=== PATIENT | male | born 1945 | race Two or more races ===

== ENCOUNTER 2025-05-12 16:31 | Emergency (ER) | payer OTHER ==
[~2025-05-12] VITALS: Ht 182.9 cm; Wt 90.9 kg
[2025-05-12 17:10] LABS: Hematocrit 22.8 % (41.0-53.0); Hemoglobin 7.7 g/dL (13.5-17.5)
[2025-05-12 17:11] LABS: Mean Corpuscular Hemoglobin 31.7 pg (28.0-32.0); Mean Corpuscular Volume 94.0 fL (80.0-100.0)
[2025-05-12 17:23] LABS: Alanine Aminotransferase 14 U/L (7-40); Albumin 3.8 g/dL (3.2-4.8); Alkaline Phosphatase 84 U/L (46-116); Anion Gap 8 (5-15); BUN/Creatinine Ratio 18.9 (10.0-20.0); Calcium 9.4 mg/dL (8.7-10.4); Carbon Dioxide 21 mmol/L (20-31); Glucose 98 mg/dL (74-106); Potassium 5.0 mmol/L (3.5-5.1); Sodium 144 mmol/L (136-145)
[2025-05-12 17:25] LABS: Bilirubin, Total 2.1 mg/dL (0.2-1.0); Blood Urea Nitrogen 63 mg/dL (9-23); Chloride 115 mmol/L (98-107); Lipase 81 U/L (12-53); Total Protein 5.4 g/dL (5.7-8.2)
[2025-05-12 17:40] VITALS: PULSE 78; RESP 16; O2SAT 93
--- NOTE | 2025-05-12 17:49 | ED.PDOC ---
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 EMS reports, patient is coming from home where family called d/t patient being overly weak and pale x4days. Per EMS, family relays patient received a blood transfusion x4days ago at [facility] prior to commencement of symptoms. Patient denies hematemesis, melena, fever, body-aches, or diarrhea. No other symptoms or modifying factors present at this time. Vital signs were stable. Chief Complaint: General Weakness Time Seen by MD: 17:35 Reviewed Notes: Nurses Notes, Medications, Allergies Allergies: Coded Allergies: NSAIDs (Verified Allergy, Unknown, 05/12/25) Information Source: Patient, Relative Mode of Arrival: Ambulatory Severity: Moderate Timing: Days Duration: Since onset Prehospital treatment: None Past Medical History PAST MEDICAL HISTORY: Anemia, ESRD Surgical History: Denies all surgeries Family History Family History: Unknown Social History Smoker: Non-Smoker Alcohol: Denies ETOH Use Drugs: Denies Drug Use Lives In: Home Constitutional: reports: weakness; denies: chills, diaphoresis, fatigue, fever, malaise, sweats, others EENTM: denies: blurred vision, double vision, ear bleeding, ear discharge, ear drainage, ear pain, ear ringing, eye pain, eye redness, hearing loss, mouth pain, mouth swelling, nasal discharge, nose bleeding, nose congestion, nose pain, photophobia, tearing, throat pain, throat swelling, voice changes, others Respiratory: denies: cough, hemoptysis, orthopnea, SOB at rest, shortness of breath, SOB with excertion, stridor, wheezing, others Cardiovascular: denies: chest pain, dizzy spells, diaphoresis, Dyspnea on exertion, edema, irregular heart beat, left arm pain, lightheadedness, palpitations, PND, syncope, others Gastrointestinal: denies: abdomen distended, abdominal pain, blood streaked bowels, constipated, diarrhea, dysphagia, difficulty swallowing, hematemesis, melena, nausea, poor appetite, poor fluid intake, rectal bleeding, rectal pain, vomiting, others Genitourinary: denies: burning, dysuria, flank pain, frequency, hematuria, incontinence, penile discharge, penile sore, pain, testicle pain, testicle swelling, urgency, others Neurological: denies: dizziness, fainting, headache, left sided numbness, left sided weakness, numbness, paresthesia, pre-existing deficit, right sided numbness, right sided weakness, seizure, speech problems, tingling, tremors, weakness, others Musculoskeletal: denies: back pain, gout, joint pain, joint swelling, muscle pain, muscle stiffness, neck pain, others Integumetry: denies: bruises, change in color, change in hair/nails, dryness, laceration, lesions, lumps, rash, wounds, others Allergic/Immunocompromised: denies: Difficulty Healing, Frequent Infections, Hives, Itching, others Hematologic/Lymphatic: denies: anemia, blood clots, easy bleeding, easy bruising, swollen glands, others Endocrine: denies: excessive hunger, excessive sweating, excessive thirst, excessive urination, flushing, intolerance to cold, intolerance to heat, unexplained weight gain, unexplained weight loss, others Psychiatric: denies: anxiety, bipolar disorder, depression, hopeless, panic disorder, schizophrenia, sleepless, suicidal, others All Other Systems: Reviewed and Negative Physical Exam General Appearance: Mild Distress (Patient was in very mild distress at time of evaluation. Patient was pleasant and did look toxic.), Normal HEENT: Normal ENT Inspection, Pharynx Normal, TMs Normal Neck: Full Range of Motion, Non-Tender, Normal, Normal Inspection Respiratory: Chest Non-Tender, Lungs Clear, No Accessory Muscle Use, No Respiratory Distress, Normal Breath Sounds Cardiovascular: No Edema, No JVD, No Murmur, No Gallop, Normal Peripheral Pulses, Regular Rate/Rhythm Breast Exam: Deferred Gastrointestinal: No Organomegaly, Non Tender, No Pulsatile Mass, Normal Bowel Sounds, Soft Genitalia: Deferred Pelvic: Deferred Rectal: Deferred Extremities: Normal capillary refill, Pedal edema Neurologic: Alert Cerebellar Function: NOT DONE Reflexes: NOT DONE Skin: Dry, Normal Color, Warm Lymphatic: No Adenopathy Was a procedure done? Was a procedure done?: No Differential Dx Considerations may include: Anemia of chronic disease, sepsis, electrolyte abnormality, acute coronary syndrome X-Ray, Labs, Meds, VS Vital Signs Date Time Temp Pulse Resp B/P (MAP) Pulse Ox O2 Delivery O2 Flow Rate FiO2 05/12/25 20:00 81 05/12/25 19:30 79 18 123/56 (78) 96 05/12/25 19:30 79 18 96 Room Air* 0 21 05/12/25 18:00 77 19 118/54 (75) 96 05/12/25 17:40 81 05/12/25 17:40 78 16 93 Room Air* 0 21 05/12/25 17:40 97.8 78 16 128/59 (82) 93 97.8 05/12/25 17:03 98.3 72 16 114/55 98 98.3 05/12/25 16:45 71 Lab Test 05/12/25 20:19 05/12/25 20:02 05/12/25 18:25 05/12/25 17:06 Range/Units Urine Color Light-yellow Yellow Urine Clarity Clear Clear Urine pH 5.5 5.0-9.0 Urine Specific [place] 1.015 1.001-1.035 Urine Protein Trace H Negative Urine Ketones Negative Negative Urine Blood Negative Negative /uL Urine Nitrite Negative Negative Urine Bilirubin Negative Negative Urine Urobilinogen Normal Negative mg/dL Urine Leukocyte Esterase Negative Negative /uL Urine RBC <1 0 - 3 /hpf Urine Microscopic WBC 1 0-3 /HPF Urine Squamous Epithelial Cells Few <5 /hpf Urine Bacteria None seen None Seen /hpf Urine Glucose Normal Normal mg/dL Troponin I High Sensitivity 51 52 </=54 ng/L POC Glucose 91 70-106 mg/dl Test 05/12/25 17:00 Range/Units White Blood Count 5.9 4.4-10.8 10^3/uL Red Blood Count 2.42 L 4.5-5.90 10^6/uL Hemoglobin 7.7 L 13.5-17.5 g/dL Hematocrit 22.8 L 41.0-53.0 % Mean Corpuscular Volume 94.0 80.0-100.0 fL Mean Corpuscular Hemoglobin 31.7 28.0-32.0 pg Mean Corpuscular Hemoglobin Concent 33.7 32.0-36.0 g/dL Red Cell Distribution Width 19.8 H 11.8-14.3 % Platelet Count 129 L 140-450 10^3/uL Mean Platelet Volume 7.2 6.9-10.8 fL Neutrophils (%) (Auto) 37.0-80.0 % Lymphocytes (%) (Auto) 10.0-50.0 % Monocytes (%) (Auto) 0.0-12.0 % Basophils (%) (Auto) 0.0-2.0 % Neutrophils # (Auto) 1.6-8.6 10 ^3/uL Lymphocytes # (Auto) 0.4-5.4 10 ^3/uL Monocytes # (Auto) 0-1.3 10 ^3/uL Differential Total Cells Counted 100.0 100 Neutrophils % (Manual) 27 L 37.0-80.0 Band Neutrophils % (Manual) 0 Lymphocytes % (Manual) 63 H 10.0-50.0 Monocytes % (Manual) 7 0-12 Eosinophils % (Manual) 3 0-7 Basophils % (Manual) 0 0.0-2.0 Metamyelocytes % (manual) 0 Myelocytes % (Manual) 0 Promyelocytes % (Manual) 0 Blast Cells % (Manual) 0 Reactive Lymphocytes 0 Platelet Estimate Decreased Anisocytosis (manual) Slight Sodium Level 144 136-145 mmol/L Potassium Level 5.0 3.5-5.1 mmol/L Chloride Level 115 H 98-107 mmol/L Carbon Dioxide Level 21 20-31 mmol/L Anion Gap 8 5-15 Blood Urea Nitrogen 63 H 9-23 mg/dL Creatinine 3.33 H 0.700-1.30 mg/dL Glomerular Filtration Rate Calc 18 >90 mL/min BUN/Creatinine Ratio 18.9 10.0-20.0 Serum Glucose 98 74-106 mg/dL Calcium Level 9.4 8.7-10.4 mg/dL Total Bilirubin 2.1 H 0.2-1.0 mg/dL Aspartate Amino Transferase (AST) 23 13-40 U/L Alanine Aminotransferase (ALT) 14 7-40 U/L Alkaline Phosphatase 84 46-116 U/L Troponin I High Sensitivity 58 *H </=54 ng/L Total Protein 5.4 L 5.7-8.2 g/dL Albumin 3.8 3.2-4.8 g/dL Lipase 81 H 12-53 U/L X-Ray, Labs, Meds, VS Comment All studies performed the ED were evaluated by me personally. Laboratories revealed a significant anemic state as well as confirmation of the chronic renal concerns as well as a mildly elevated troponin. EKG revealed a sinus rhythm with a rate of 71. Low voltage on extremity leads as well as nonspecific T-wave abnormalities. NV interval 171 and QT interval of 407. Spoke with Dr. Dee at [facility] and advised him of initial presentation as well as laboratory and EKG findings. He advised that all the numbers presented were indicative of the patient's baseline. We both agreed that the patient should receive 2 units of PRBCs and sent home for continued home management. Advised patient and of the conversation between [facility] and myself. They were in agreement with the strategy for the day. Patient should follow up with his [facility] providers next week. Time of 1ST Reevaluation: 21:32 Reevaluation 1ST: Improved Consultation: PCP Patient Education/Counseling: Diagnosis, Treatment Family Education/Counseling: Diagnosis, Treatment, No Family Present SEPSIS Sepsis Screen Recent Procedure: No On Antibiotic Therapy: No Respiratory Rate >20: No Heart Rate >90: No Temp<36 C (96.8 F) or >38.3 C: No SBP <90 or MAP <65 mmHG: No New Acute Mental Status Change: No Is the patient on CPAP, BIPAP,: No Physician Orders Heplock Iv (05/12/25 ) Continuous Ekg Monitoring 08,12,16,20,00,04 (05/12/25 16:42) Obtain Consent For: (05/12/25 19:23) Packedcell-Noactive Bleeding (05/12/25 19:23) Type And Screen (05/12/25 19:23) Obtain Consent For Anesthesia (05/12/25 19:23) Vital Signs Date Time Temp Pulse Resp B/P (MAP) Pulse Ox O2 Delivery O2 Flow Rate FiO2 05/12/25 20:00 81 05/12/25 19:30 79 18 123/56 (78) 96 05/12/25 19:30 79 18 96 Room Air* 0 21 05/12/25 18:00 77 19 118/54 (75) 96 05/12/25 17:40 81 05/12/25 17:40 78 16 93 Room Air* 0 21 05/12/25 17:40 97.8 78 16 128/59 (82) 93 97.8 05/12/25 17:03 98.3 72 16 114/55 98 98.3 05/12/25 16:45 71 Laboratory Tests Test 05/12/25 17:00 White Blood Count 5.9 10^3/uL (4.4-10.8) Departure 1 Departure Time of Disposition: 21:33 Impression: Primary Impression: Anemia Additional Impressions: End stage renal disease Elevated troponin I level Disposition: HOME / SELF CARE / HOMELESS Condition: Stable Additional Instructions: Advised patient follow up next week with his primary care provider for continued management of his multiple comorbidities. Discharged With: Self, Spouse Critical Care Note Critical Care Time?: No Stability Stability form required: No Heart Score Heart Score: Heart Score Response (Comments) Value History Slightly Suspicious 0 EKG Repolarization Disturb 1 Age >65 2 Risk Factors 1 or 2 risk factors 1 Troponin 1-2 x's Normal limit 1 Total 5 I personally scribed for MARIPOSA DANIEL PAC ([email or web address]) on 05/12/25 at 17:49. Electronically submitted by Macrina Carpenter [email or web address]). MARIPOSA DANIEL PAC May 12, 2025 17:49
--- NOTE | 2025-05-12 18:30 | ECG ---
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
[2025-05-12 18:54] LABS: Total Cells Counted 100.0 (100)
[2025-05-12 18:55] LABS: Anisocytosis Slight
[2025-05-12 19:30] VITALS: PULSE 79; RESP 18; O2SAT 96
[2025-05-12 21:07] LABS: Urine Protein, UAD TRACE (Negative)
[2025-05-12 21:43] VITALS: BP 103/44; PULSE 82; RESP 15; TEMP 99.1
[2025-05-12 22:07] VITALS: BP 123/54; PULSE 83; RESP 19; TEMP 98.9
[2025-05-12] MEDS: ACETAMINOPHEN 325 MG TAB PO ONE (22:29)
[2025-05-12 23:34] VITALS: BP 114/49; PULSE 72; RESP 14; TEMP 97.9
[2025-05-13 00:03] VITALS: BP 121/61; PULSE 70; RESP 16; TEMP 98.1
[2025-05-13 00:31] VITALS: BP 118/55; PULSE 74; RESP 19; TEMP 97.7
[2025-05-13 02:00] VITALS: O2SAT 95
[2025-05-13 02:05] VITALS: BP 114/62; PULSE 74; RESP 19; TEMP 97.7
== END 2025-05-13 02:17 | disposition home or self-care (01) ==
LOC: EDBD 16:31 → ER 16:31
DX: N18.6 End stage renal disease (principal); D63.1 Anemia in chronic kidney disease; Z88.6 Allergy status to analgesic agent; R79.89 Other specified abnormal findings of blood chemistry
CPT/HCPCS: 36415; 36430; 80053; 81001; 82947; 83690; 84484; 85007; 85027; 86850; 86900; 86901; 86920; 93005; 99285; P9016; 82962

== ENCOUNTER 2025-05-22 11:29 | Inpatient (IN) | payer OTHER ==
[~2025-05-22] VITALS: Ht 180.3 cm; Wt 90.3 kg
[2025-05-22] MEDS: MELATONIN 5 MG TAB PO ONE (01:00)
--- NOTE | 2025-05-22 12:49 | ED.PDOC ---
History of Present Illness HPI Comments 79 y.o male with multiple comorbidities, including liver cirrhosis, splenomegaly, CKD, DM, HLD, and chronic anemia, presents to the ED due to increased generalized weakness and pallor, associated with a Hgb of 7.5 noted on routine lab draw done yesterday. Patient is ambulatory with his walker and is accompanied by spouse. The patient and his deny any signs of active bleeding, and recent workup, including endoscopy and colonoscopy, has reportedly ruled out gastrointestinal bleeding and ulcers. Patient reports having 8 total blood transfusions in the past due to ongoing low anemia without identified source/deficiency. Patient denies any chest pain, SOB, fever, chills, recent illness exposure. Chief Complaint: Abnormal LAB's Time Seen by MD: 12:19 Reviewed Notes: Nurses Notes, Medications, Allergies Allergies: Coded Allergies: NSAIDs (Verified Allergy, Unknown, 05/12/25) Information Source: Spouse Mode of Arrival: walker Severity: Moderate Timing: Came on: Gradually Duration: Since onset Past Medical History PAST MEDICAL HISTORY: Anemia, ESRD, High Lipids, HTN, Liver Surgical History: Denies all surgeries Family History Family History: Unknown Social History Smoker: Non-Smoker Alcohol: Denies ETOH Use Drugs: Denies Drug Use Lives In: Home Constitutional: reports: weakness; denies: chills, diaphoresis, fatigue, fever, malaise, sweats, others EENTM: denies: blurred vision, double vision, ear bleeding, ear discharge, ear drainage, ear pain, ear ringing, eye pain, eye redness, hearing loss, mouth pain, mouth swelling, nasal discharge, nose bleeding, nose congestion, nose pain, photophobia, tearing, throat pain, throat swelling, voice changes, others Respiratory: denies: cough, hemoptysis, orthopnea, SOB at rest, shortness of breath, SOB with excertion, stridor, wheezing, others Cardiovascular: denies: chest pain, dizzy spells, diaphoresis, Dyspnea on exertion, edema, irregular heart beat, left arm pain, lightheadedness, palpitations, PND, syncope, others Gastrointestinal: denies: abdomen distended, abdominal pain, blood streaked bowels, constipated, diarrhea, dysphagia, difficulty swallowing, hematemesis, melena, nausea, poor appetite, poor fluid intake, rectal bleeding, rectal pain, vomiting, others Genitourinary: denies: burning, dysuria, flank pain, frequency, hematuria, incontinence, penile discharge, penile sore, pain, testicle pain, testicle swelling, urgency, others Neurological: denies: dizziness, fainting, headache, left sided numbness, left sided weakness, numbness, paresthesia, pre-existing deficit, right sided numbness, right sided weakness, seizure, speech problems, tingling, tremors, weakness, others Musculoskeletal: denies: back pain, gout, joint pain, joint swelling, muscle pain, muscle stiffness, neck pain, others Integumetry: reports: change in color (pale ); denies: bruises, change in hair/nails, dryness, laceration, lesions, lumps, rash, wounds, others Allergic/Immunocompromised: denies: Difficulty Healing, Frequent Infections, Hives, Itching, others Hematologic/Lymphatic: reports: anemia; denies: blood clots, easy bleeding, easy bruising, swollen glands, others Endocrine: denies: excessive hunger, excessive sweating, excessive thirst, excessive urination, flushing, intolerance to cold, intolerance to heat, unexplained weight gain, unexplained weight loss, others Psychiatric: denies: anxiety, bipolar disorder, depression, hopeless, panic disorder, schizophrenia, sleepless, suicidal, others All Other Systems: Reviewed and Negative Physical Exam General Appearance: Moderate Distress HEENT: Normal ENT Inspection, Pharynx Normal, TMs Normal Neck: Full Range of Motion, Non-Tender, Normal, Normal Inspection Respiratory: Chest Non-Tender, Lungs Clear, No Accessory Muscle Use, No Respiratory Distress, Normal Breath Sounds Cardiovascular: No Edema, No JVD, No Murmur, No Gallop, Normal Peripheral Pulses, Regular Rate/Rhythm Breast Exam: Deferred Gastrointestinal: Distended, Soft Genitalia: Deferred Pelvic: Deferred Rectal: Deferred Extremities: No calf tenderness, Normal capillary refill, Normal inspection, Normal range of motion, Non-tender, No pedal edema Musculoskeletal : Apperance: Normal Neurologic: Alert, warehouse trainer II-XII nml as Tested, No Motor Deficits, Normal Affect, Normal Mood, No Sensory Deficits Cerebellar Function: Normal Reflexes: Normal Skin: Pallor Peripheral Pulses: 3+ Radial (R), 3+ Radial (L) Lymphatic: No Adenopathy Was a procedure done? Was a procedure done?: No Differential Dx Considerations may include: Inadequate RBC Production, Iron Deficiency Anemia, Renal Disease, Vitamin Deficiencies B12 deficiency, Autoimmune Hemolytic Anemia, Bone Marrow Suppression X-Ray, Labs, Meds, VS Vital Signs Date Time Temp Pulse Resp B/P (MAP) Pulse Ox O2 Delivery O2 Flow Rate FiO2 05/22/25 15:00 98.3 62 19 104/51 (68) 96 98.3 05/22/25 14:15 97.9 67 12 90/42 (58) 96 97.9 05/22/25 14:15 Room Air* 0 21 05/22/25 11:31 97.8 73 15 108/78 96 97.8 Lab Test 05/22/25 15:13 05/22/25 12:54 Range/Units POC Glucose 128 H 70-106 mg/dl White Blood Count 3.6 L 4.4-10.8 10^3/uL Red Blood Count 2.68 L 4.5-5.90 10^6/uL Hemoglobin 8.3 L 13.5-17.5 g/dL Hematocrit 24.2 L 41.0-53.0 % Mean Corpuscular Volume 90.1 80.0-100.0 fL Mean Corpuscular Hemoglobin 31.0 28.0-32.0 pg Mean Corpuscular Hemoglobin Concent 34.4 32.0-36.0 g/dL Red Cell Distribution Width 18.8 H 11.8-14.3 % Platelet Count 118 L 140-450 10^3/uL Mean Platelet Volume 7.2 6.9-10.8 fL Neutrophils (%) (Auto) 37.0-80.0 % Lymphocytes (%) (Auto) 10.0-50.0 % Monocytes (%) (Auto) 0.0-12.0 % Basophils (%) (Auto) 0.0-2.0 % Neutrophils # (Auto) 1.6-8.6 10 ^3/uL Lymphocytes # (Auto) 0.4-5.4 10 ^3/uL Monocytes # (Auto) 0-1.3 10 ^3/uL Differential Total Cells Counted 100.0 100 Neutrophils % (Manual) 24 L 37.0-80.0 Band Neutrophils % (Manual) 3 Lymphocytes % (Manual) 67 H 10.0-50.0 Monocytes % (Manual) 4 0-12 Eosinophils % (Manual) 2 0-7 Basophils % (Manual) 0 0.0-2.0 Metamyelocytes % (manual) 0 Myelocytes % (Manual) 0 Promyelocytes % (Manual) 0 Blast Cells % (Manual) 0 Reactive Lymphocytes 0 Platelet Estimate Decreased Anisocytosis (manual) Slight [place] Cells Few Sodium Level 143 136-145 mmol/L Potassium Level 5.6 *H 3.5-5.1 mmol/L Chloride Level 114 H 98-107 mmol/L Carbon Dioxide Level 18 L 20-31 mmol/L Anion Gap 11 5-15 Blood Urea Nitrogen 82 *H 9-23 mg/dL Creatinine 3.26 H 0.700-1.30 mg/dL Glomerular Filtration Rate Calc 18 >90 mL/min BUN/Creatinine Ratio 25.2 H 10.0-20.0 Serum Glucose 131 H 74-106 mg/dL Calcium Level 9.5 8.7-10.4 mg/dL Troponin I High Sensitivity 6 </=54 ng/L Current Medications Medications (Trade) Dose Ordered Sig/Rebekah Route Start Time Stop Time Status Last Admin Insulin Human Regular (InsuLIN R) 10 units ONCE ONCE IV 05/22/25 14:30 05/22/25 14:31 DC 05/22/25 15:37 Dextrose 50 ml ONCE ONCE IV 05/22/25 14:30 05/22/25 14:31 DC 05/22/25 15:07 Sodium Bicarbonate 50 ml ONCE ONCE IV 05/22/25 14:30 05/22/25 14:31 DC 05/22/25 15:20 Calcium Gluconate/ Sodium Chloride 50 ml @ 120 mls/hr ONCE ONCE IV 05/22/25 14:30 05/22/25 14:54 DC 05/22/25 14:58 Zirconium Oxide (Lokelma) 10 gm ONCE ONCE PO 05/22/25 14:30 05/22/25 14:31 DC 05/22/25 15:15 Patient alert. He is pale. Reviewed his previous labs which showed hemoglobin around 7.5. Vitals stable. Hepatosplenomegaly. Potassium elevated. Hyperkalemia treatment. Kidney function elevated. Explained to the patient. [place] approved inpatient admission [id number]. Time of 1ST Reevaluation: 12:38 Reevaluation 1ST: Unchanged Patient Education/Counseling: Diagnosis, Treatment, Prognosis Family Education/Counseling: Diagnosis, Treatment, Prognosis SEPSIS Sepsis Screen Date sepsis recognized/suspect: May 22, 2025 Time Sepsis recognized/suspect: 1133 Recent Procedure: No On Antibiotic Therapy: No Respiratory Rate >20: No Heart Rate >90: No Temp<36 C (96.8 F) or >38.3 C: No SBP <90 or MAP <65 mmHG: No New Acute Mental Status Change: No Is the patient on CPAP, BIPAP,: No Physician Orders Potassium (05/22/25 18:16) Vital Signs Date Time Temp Pulse Resp B/P (MAP) Pulse Ox O2 Delivery O2 Flow Rate FiO2 05/22/25 15:00 98.3 62 19 104/51 (68) 96 98.3 05/22/25 14:15 97.9 67 12 90/42 (58) 96 97.9 05/22/25 14:15 Room Air* 0 21 05/22/25 11:31 97.8 73 15 108/78 96 97.8 Laboratory Tests Test 05/22/25 12:54 White Blood Count 3.6 10^3/uL (4.4-10.8) L Medications Medications Dose Ordered Sig/Rebekah Route Start Time Stop Time Status Last Admin Dose Admin Calcium Gluconate/ Sodium Chloride 50 ml @ 120 mls/hr ONCE ONCE IV 05/22/25 14:30 05/22/25 14:54 DC 05/22/25 14:58 Dextrose 50 ml ONCE ONCE IV 05/22/25 14:30 05/22/25 14:31 DC 05/22/25 15:07 Insulin Human Regular 10 units ONCE ONCE IV 05/22/25 14:30 05/22/25 14:31 DC 05/22/25 15:37 Sodium Bicarbonate 50 ml ONCE ONCE IV 05/22/25 14:30 05/22/25 14:31 DC 05/22/25 15:20 Zirconium Oxide 10 gm ONCE ONCE PO 05/22/25 14:30 05/22/25 14:31 DC 05/22/25 15:15 Departure 1 Departure Time of Disposition: 16:59 Impression: Primary Impression: Hyperkalemia Additional Impression: End stage renal disease Disposition: 09 ADMITTED INPATIENT Admit to: Med Surg Condition: Guarded Critical Care Note Critical Care Time?: Yes (90 min-critical care time only) Stability Stability form required: No I personally scribed for PERI FLANAGAN MD ([email or web address]) on 05/22/25 at 12:49. Electronically submitted by Denise Carballo ([facility]). PERI FLANAGAN MD May 22, 2025 12:49
[2025-05-22 13:11] LABS: Hematocrit 24.2 % (41.0-53.0); Hemoglobin 8.3 g/dL (13.5-17.5); Mean Corpuscular Hemoglobin 31.0 pg (28.0-32.0); Mean Corpuscular Volume 90.1 fL (80.0-100.0)
[2025-05-22 13:15] LABS: Sodium 143 mmol/L (136-145)
[2025-05-22 13:16] LABS: Anion Gap 11 (5-15); Calcium 9.5 mg/dL (8.7-10.4)
[2025-05-22 13:21] LABS: BUN/Creatinine Ratio 25.2 (10.0-20.0)
[2025-05-22 14:03] LABS: Carbon Dioxide 18 mmol/L (20-31); Chloride 114 mmol/L (98-107); Glucose 131 mg/dL (74-106)
[2025-05-22 14:06] LABS: Potassium 5.6 mmol/L (3.5-5.1)
[2025-05-22 14:07] LABS: Blood Urea Nitrogen 82 mg/dL (9-23)
[2025-05-22] MEDS: CALCIUM GLUC 1,000mg/50ml-NS 50 ML IV ONE (14:58)
[2025-05-22 15:01] LABS: Anisocytosis Slight; Total Cells Counted 100.0 (100)
[2025-05-22] MEDS: DEXTROSE (50%) 50ML SYRG IV ONE (15:07)
[2025-05-22] MEDS: SODIUM ZIRCONIUM CYCL 10 GM PAK PO ONE (15:15)
[2025-05-22] MEDS: SODIUM BICARB 8.4% 50Meq/50ml SYR INJ IV ONE (15:20)
[2025-05-22] MEDS: InsuLIN REG 1unit/0.01ml Soln (100units/ml) IV ONE (15:37)
[2025-05-22] MEDS ORDERED: ONDANSETRON HCL 4 MG/2 ML VIAL IV PRN ×2 (19:00)
[2025-05-22] MEDS ORDERED: ACETAMINOPHEN 325 MG TAB PO PRN (19:00)
--- NOTE | 2025-05-22 22:04 | DVHHP2 ---
History of Present Illness Reason for Visit: Generalized weakness History of Present Illness 79-year-old male presents for evaluation of generalized weakness. Patient reports a history of chronic kidney disease, diabetes mellitus and liver disease. He reports generalized weakness for the past three days. He reports having recent GI workup including endoscopy and colonoscopy to rule out GI bleed and ulcers. He states results were negative. He reports having blood transfusions for chronic anemia in the past.. Reports occasional shortness for breath. No fever or chills. No other acute complaints. Past Medical History Liver disease, end-stage renal disease, hypertension, anemia Past Surgical History Denies Family History Noncontributory Smoke: No ALCOHOL: none Drugs: None Lives: with Family Review of Systems Review of Systems Review of systems are currently negative otherwise addressed in HPI. Allergies: Coded Allergies: NSAIDs (Verified Allergy, Unknown, 05/12/25) Medications Current Medications Medications Dose Ordered Sig/Rebkeah Route Start Time Stop Time Status Last Admin Dose Admin Amlodipine Besylate 5 mg DAILY PO 05/23/25 10:00 Tamsulosin HCl 0.4 mg QPM PO 05/23/25 18:00 Allopurinol 100 mg DAILY PO 05/23/25 10:00 Pantoprazole Sodium 40 mg DAILY@0600 PO 05/23/25 06:00 Ondansetron HCl 4 mg Q4HP PRN IV 05/22/25 19:00 Acetaminophen 650 mg Q6HP PRN PO 05/22/25 19:00 Exam Vital Signs Vital Signs Date Time Temp Pulse Resp B/P (MAP) Pulse Ox O2 Delivery O2 Flow Rate FiO2 05/22/25 20:00 98.3 69 13 123/51 (75) 99 98.3 05/22/25 14:15 Room Air* 0 21 Exam Gen: 79-year-old male in mild distress. Skin: Warm, dry, normal color and texture, no rash. HEENT: Normocephalic atraumatic, mucous membranes moist and pink. Neck: Cervical and supraclavicular nodes normal without enlargement, trachea is midline, thyroid gland is normal without masses. Pulmonary: Clear to auscultation and percussion bilaterally. Cardiac: Regular rate and rhythm. No murmur Abdomen: Soft, nontender, nondistended, bowel sounds present all 4 quadrants, no guarding, no rigidity, no organomegaly. Extremities: No cyanosis, clubbing, no edema Neuro: Cranial nerves II through XII grossly intact, normal affect and speech, no focal motor deficits. Labs/Xrays Labs Test 05/22/25 18:04 05/22/25 15:13 05/22/25 12:54 Range/Units Potassium Level 4.9 3.5-5.1 mmol/L POC Glucose 128 H 70-106 mg/dl White Blood Count 3.6 L 4.4-10.8 10^3/uL Red Blood Count 2.68 L 4.5-5.90 10^6/uL Hemoglobin 8.3 L 13.5-17.5 g/dL Hematocrit 24.2 L 41.0-53.0 % Mean Corpuscular Volume 90.1 80.0-100.0 fL Mean Corpuscular Hemoglobin 31.0 28.0-32.0 pg Mean Corpuscular Hemoglobin Concent 34.4 32.0-36.0 g/dL Red Cell Distribution Width 18.8 H 11.8-14.3 % Platelet Count 118 L 140-450 10^3/uL Mean Platelet Volume 7.2 6.9-10.8 fL Neutrophils (%) (Auto) 37.0-80.0 % Lymphocytes (%) (Auto) 10.0-50.0 % Monocytes (%) (Auto) 0.0-12.0 % Basophils (%) (Auto) 0.0-2.0 % Neutrophils # (Auto) 1.6-8.6 10 ^3/uL Lymphocytes # (Auto) 0.4-5.4 10 ^3/uL Monocytes # (Auto) 0-1.3 10 ^3/uL Differential Total Cells Counted 100.0 100 Neutrophils % (Manual) 24 L 37.0-80.0 Band Neutrophils % (Manual) 3 Lymphocytes % (Manual) 67 H 10.0-50.0 Monocytes % (Manual) 4 0-12 Eosinophils % (Manual) 2 0-7 Basophils % (Manual) 0 0.0-2.0 Metamyelocytes % (manual) 0 Myelocytes % (Manual) 0 Promyelocytes % (Manual) 0 Blast Cells % (Manual) 0 Reactive Lymphocytes 0 Platelet Estimate Decreased Anisocytosis (manual) Slight [place] Cells Few Sodium Level 143 136-145 mmol/L Chloride Level 114 H 98-107 mmol/L Carbon Dioxide Level 18 L 20-31 mmol/L Anion Gap 11 5-15 Blood Urea Nitrogen 82 *H 9-23 mg/dL Creatinine 3.26 H 0.700-1.30 mg/dL Glomerular Filtration Rate Calc 18 >90 mL/min BUN/Creatinine Ratio 25.2 H 10.0-20.0 Serum Glucose 131 H 74-106 mg/dL Calcium Level 9.5 8.7-10.4 mg/dL Troponin I High Sensitivity 6 </=54 ng/L SEPSIS Sepsis Screen Date sepsis recognized/suspect: May 22, 2025 Time Sepsis recognized/suspect: 3 Recent Procedure: No On Antibiotic Therapy: No Respiratory Rate >20: No Heart Rate >90: No Temp<36 C (96.8 F) or >38.3 C: No SBP <90 or MAP <65 mmHG: No New Acute Mental Status Change: No Is the patient on CPAP, BIPAP,: No Physician Orders *[facility] (05/22/25 18:53) Amlodipine Tablet (Norvasc Tablet) (05/23/25 10:00) Tamsulosin Hydrochloride (Flomax) (05/23/25 18:00) Allopurinol Tablet (Zyloprim Tablet) (05/23/25 10:00) Pantoprazole Tablet (Protonix Tablet) (05/23/25 06:00) Basic Metabolic Panel (05/23/25 04:00) Renal Standard(2gna,3gk,Lopho) (05/23/25 Breakfast) Ondansetron Hcl (Zofran) (05/22/25 19:00) Condition: Stable (05/22/25 18:53) Acetaminophen Tablet (Tylenol Tablet) (05/22/25 19:00) Bedrest With Bathroom Privileg (05/22/25 18:53) Admit (05/22/25 19:49) Vital Signs Date Time Temp Pulse Resp B/P (MAP) Pulse Ox O2 Delivery O2 Flow Rate FiO2 05/22/25 20:00 98.3 69 13 123/51 (75) 99 98.3 05/22/25 18:00 72 17 108/79 (89) 96 05/22/25 17:00 98.3 64 18 128/50 (76) 96 98.3 05/22/25 15:00 98.3 62 19 104/51 (68) 96 98.3 05/22/25 14:15 97.9 67 12 90/42 (58) 96 97.9 05/22/25 14:15 Room Air* 0 21 Laboratory Tests Test 05/22/25 12:54 White Blood Count 3.6 10^3/uL (4.4-10.8) L Medications Medications Dose Ordered Sig/Rebekah Route Start Time Stop Time Status Last Admin Dose Admin Calcium Gluconate/ Sodium Chloride 50 ml @ 120 mls/hr ONCE ONCE IV 05/22/25 14:30 05/22/25 14:54 DC 05/22/25 14:58 120 MLS/HR Dextrose 50 ml ONCE ONCE IV 05/22/25 14:30 05/22/25 14:31 DC 05/22/25 15:07 50 ML Insulin Human Regular 10 units ONCE ONCE IV 05/22/25 14:30 05/22/25 14:31 DC 05/22/25 15:37 10 UNITS Sodium Bicarbonate 50 ml ONCE ONCE IV 05/22/25 14:30 05/22/25 14:31 DC 05/22/25 15:20 50 ML Zirconium Oxide 10 gm ONCE ONCE PO 05/22/25 14:30 05/22/25 14:31 DC 05/22/25 15:15 10 GM Assessment/Plan Assessment/Plan Assessment End-stage renal disease with hyperkalemia Hypertension Anemia of chronic disease Plan Admit the patient to [facility] to the hospitalist Nephrology consultation Resume home medications Continue treatment per orders. Plan discussed with: Patient My Orders Orders - RUSSELL DEL VALLE Procedure Category Date Status Time *[facility] CONS 05/22/25 Transmitted -[place] 18:53 Amlodipine Tablet PHA 05/23/25 In Process (Norvasc Tablet) 10:00 Tamsulosin PHA 05/23/25 In Process Hydrochloride (Flomax) 18:00 Allopurinol Tablet PHA 05/23/25 In Process (Zyloprim Tablet) 10:00 Pantoprazole Tablet PHA 05/23/25 In Process (Protonix Tablet) 06:00 Basic Metabolic Panel LAB 05/23/25 Verified 04:00 Renal DIET 05/23/25 Transmitted Standard(2gna,3gk,Lopho) Breakfast Ondansetron Hcl PHA 05/22/25 In Process (Zofran) 19:00 Condition: Stable [facility] 05/22/25 In Process 18:53 Acetaminophen Tablet PHA 05/22/25 In Process (Tylenol Tablet) 19:00 Bedrest With Bathroom [facility] 05/22/25 In Process Privileg 18:53 Admit ADMIT 05/22/25 Transmitted 19:49 Date of Service: May 22, 2025 Billing Provider: RUSSELL DEL VALLE Common Visit Codes: [id number] INP/OBS CARE (HIGH) RUSSELL DEL VALLE May 22, 2025 22:04
[2025-05-22 23:00] LABS: INR 1.48 (0.9-1.15); Partial Thromboplastin Time 25.3 SEC (24.5-34.5); Prothrombin Time 15.1 sec (9.3-11.8)
--- NOTE | 2025-05-22 23:47 | DVH ---
INDICATION: Renal failure TECHNIQUE: Multiple real-time sonographic images of the kidneys and bladder were obtained. COMPARISON: None FINDINGS: The right kidney measures 26.0 cm in length. The right kidney cortex appears to have been c ompletely replaced with anechoic cysts. No definite renal cortex is identified. The presence or absen ce of hydronephrosis can not be determined. The renal pelvis can not be identified. No solid right r enal mass is identified within the limitations of imaging. No left kidney is identified. 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 No large intraluminal masses are seen in the bladder. Prior to voiding the bladder volume measures 78 1 cc. The prostate is enlarged and indents the posterior wall of the bladder (estimated prostate volu me 32 cc). IMPRESSION: Polycystic right kidney. No normal renal cortex or solid renal mass is identified within the limitati ons of imaging. 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 No left kidney is identified. Distended urinary bladder at 781 cc at the time of examination. Prostatomegaly
[2025-05-23 05:10] LABS: Hemoglobin 7.5 g/dL (13.5-17.5); Mean Corpuscular Hemoglobin 31.0 pg (28.0-32.0); Mean Corpuscular Volume 89.6 fL (80.0-100.0)
[2025-05-23 05:12] LABS: Hematocrit 21.6 % (41.0-53.0)
[2025-05-23 05:14] LABS: Potassium 4.7 mmol/L (3.5-5.1); Sodium 142 mmol/L (136-145)
[2025-05-23 05:15] LABS: Anion Gap 11 (5-15)
[2025-05-23 05:16] LABS: Calcium 8.9 mg/dL (8.7-10.4)
[2025-05-23 05:17] LABS: Carbon Dioxide 19 mmol/L (20-31); Chloride 112 mmol/L (98-107)
[2025-05-23 05:20] LABS: BUN/Creatinine Ratio 27.3 (10.0-20.0); Glucose 105 mg/dL (74-106)
[2025-05-23 05:23] LABS: Blood Urea Nitrogen 85 mg/dL (9-23)
[2025-05-23 05:32] LABS: Total Cells Counted 100.0 (100)
[2025-05-23] MEDS: PANTOPRAZOLE 40 MG TAB PO SCH (06:00)
[2025-05-23] MEDS: ACETAMINOPHEN 325 MG TAB PO PRN (06:05)
[2025-05-23 07:30] VITALS: PULSE 79; RESP 14; O2SAT 97
--- NOTE | 2025-05-23 09:50 | DVHINCON2 ---
Date of service: May 23, 2025 Referring Physician Hospitalist Reason for Consultation hyperkalemia History of Present Illness 79 year old male hx CKD solitary kidney with polycystic kidney , htn and chronic anemia who reports multiple recent transfusions presents with weakness . He came to determine if he was anemic again. He takes procrit at home. He has [facility] and hematology pending outpatient bone marrow biopsy. He was found to be hyperkalemic and was admitted for this reason. Past Medical History as above Allergies: Coded Allergies: NSAIDs (Verified Allergy, Unknown, 05/12/25) Current Medications Current Medications Medications (Trade) Dose Ordered Sig/Rebekah Route PRN Reason Start Time Stop Time Status Last Admin Amlodipine Besylate (Norvasc Tablet) 5 mg DAILY PO 05/23/25 10:00 Tamsulosin HCl (Flomax) 0.4 mg QPM PO 05/23/25 18:00 Allopurinol (Zyloprim Tablet) 100 mg DAILY PO 05/23/25 10:00 Pantoprazole Sodium (Protonix Tablet) 40 mg DAILY@0600 PO 05/23/25 06:00 05/23/25 06:00 Ondansetron HCl (Zofran) 4 mg Q4HP PRN IV NAUSEA / VOMITING 05/22/25 19:00 Acetaminophen (Tylenol Tablet) 650 mg Q6HP PRN PO PAIN SCALE 1-3 OR TEMP>100.4 05/22/25 19:00 Ondansetron HCl (Zofran) 4 mg Q4HP PRN IV NAUSEA / VOMITING 05/22/25 19:00 05/22/25 19:05 DC Acetaminophen (Tylenol Tablet) 650 mg Q6HP PRN PO PAIN SCALE 1-3 OR TEMP>100.4 05/22/25 19:00 05/22/25 19:05 DC Review of Systems fatigue H&P Exam Vital Signs/I&O Vital Sign Date Time Temp Pulse Resp B/P (MAP) Pulse Ox O2 Delivery O2 Flow Rate FiO2 05/23/25 08:37 72 05/23/25 07:30 14 97 Room Air* 0 21 05/23/25 07:30 97.7 156/78 (104) 97.7 Intake and Output 05/22/25 05/23/25 19:00 07:00 Intake Total 50 ml Output Total 200 ml 700 ml Balance -150 ml -700 ml Intake IV Total 50 ml Output Urine Total 200 ml 700 ml Physical Exam elderly male Labs/Diagnostic Data Labs/Diagnostic Data Laboratory Tests Test 05/23/25 04:44 05/22/25 22:29 05/22/25 18:04 05/22/25 15:13 Range/Units White Blood Count 4.2 L 4.4-10.8 10^3/uL Red Blood Count 2.41 L 4.5-5.90 10^6/uL Hemoglobin 7.5 L 13.5-17.5 g/dL Hematocrit 21.6 #L 41.0-53.0 % Mean Corpuscular Volume 89.6 80.0-100.0 fL Mean Corpuscular Hemoglobin 31.0 28.0-32.0 pg Mean Corpuscular Hemoglobin Concent 34.7 32.0-36.0 g/dL Red Cell Distribution Width 19.3 H 11.8-14.3 % Platelet Count 113 L 140-450 10^3/uL Mean Platelet Volume 7.2 6.9-10.8 fL Neutrophils (%) (Auto) 37.0-80.0 % Lymphocytes (%) (Auto) 10.0-50.0 % Monocytes (%) (Auto) 0.0-12.0 % Basophils (%) (Auto) 0.0-2.0 % Neutrophils # (Auto) 1.6-8.6 10 ^3/uL Lymphocytes # (Auto) 0.4-5.4 10 ^3/uL Monocytes # (Auto) 0-1.3 10 ^3/uL Differential Total Cells Counted 100.0 100 Neutrophils % (Manual) 27 L 37.0-80.0 Band Neutrophils % (Manual) 2 Lymphocytes % (Manual) 58 H 10.0-50.0 Monocytes % (Manual) 5 0-12 Eosinophils % (Manual) 8 H 0-7 Basophils % (Manual) 0 0.0-2.0 Metamyelocytes % (manual) 0 Myelocytes % (Manual) 0 Promyelocytes % (Manual) 0 Blast Cells % (Manual) 0 Reactive Lymphocytes 0 Platelet Estimate Decreased [place] Cells Few Sodium Level 142 136-145 mmol/L Potassium Level 4.7 4.9 3.5-5.1 mmol/L Chloride Level 112 H 98-107 mmol/L Carbon Dioxide Level 19 L 20-31 mmol/L Anion Gap 11 5-15 Blood Urea Nitrogen 85 *H 9-23 mg/dL Creatinine 3.11 H 0.700-1.30 mg/dL Glomerular Filtration Rate Calc 19 >90 mL/min BUN/Creatinine Ratio 27.3 H 10.0-20.0 Serum Glucose 105 74-106 mg/dL Calcium Level 8.9 8.7-10.4 mg/dL Prothrombin Time 15.1 H 9.3-11.8 sec Prothrombin Time INR 1.48 H 0.9-1.15 Activated Partial Thromboplast Time 25.3 24.5-34.5 SEC POC Glucose 128 H 70-106 mg/dl Test 05/22/25 12:54 Range/Units White Blood Count 3.6 L 4.4-10.8 10^3/uL Red Blood Count 2.68 L 4.5-5.90 10^6/uL Hemoglobin 8.3 L 13.5-17.5 g/dL Hematocrit 24.2 L 41.0-53.0 % Mean Corpuscular Volume 90.1 80.0-100.0 fL Mean Corpuscular Hemoglobin 31.0 28.0-32.0 pg Mean Corpuscular Hemoglobin Concent 34.4 32.0-36.0 g/dL Red Cell Distribution Width 18.8 H 11.8-14.3 % Platelet Count 118 L 140-450 10^3/uL Mean Platelet Volume 7.2 6.9-10.8 fL Neutrophils (%) (Auto) 37.0-80.0 % Lymphocytes (%) (Auto) 10.0-50.0 % Monocytes (%) (Auto) 0.0-12.0 % Basophils (%) (Auto) 0.0-2.0 % Neutrophils # (Auto) 1.6-8.6 10 ^3/uL Lymphocytes # (Auto) 0.4-5.4 10 ^3/uL Monocytes # (Auto) 0-1.3 10 ^3/uL Differential Total Cells Counted 100.0 100 Neutrophils % (Manual) 24 L 37.0-80.0 Band Neutrophils % (Manual) 3 Lymphocytes % (Manual) 67 H 10.0-50.0 Monocytes % (Manual) 4 0-12 Eosinophils % (Manual) 2 0-7 Basophils % (Manual) 0 0.0-2.0 Metamyelocytes % (manual) 0 Myelocytes % (Manual) 0 Promyelocytes % (Manual) 0 Blast Cells % (Manual) 0 Reactive Lymphocytes 0 Platelet Estimate Decreased Anisocytosis (manual) Slight [place] Cells Few Sodium Level 143 136-145 mmol/L Potassium Level 5.6 *H 3.5-5.1 mmol/L Chloride Level 114 H 98-107 mmol/L Carbon Dioxide Level 18 L 20-31 mmol/L Anion Gap 11 5-15 Blood Urea Nitrogen 82 *H 9-23 mg/dL Creatinine 3.26 H 0.700-1.30 mg/dL Glomerular Filtration Rate Calc 18 >90 mL/min BUN/Creatinine Ratio 25.2 H 10.0-20.0 Serum Glucose 131 H 74-106 mg/dL Calcium Level 9.5 8.7-10.4 mg/dL Troponin I High Sensitivity 6 </=54 ng/L Assessment 79 year old male w/ advance CKD p/w anemia and hyperkalemia Acute kidney injury ckd advance stage , solitary polycystic kidney suspect stage 4 anemia due to ckd hyperkalemia metabolic acidosis BPH Procrit today, IV iron injection today sodium bicarbonate today resume prostate meds US shows bladder distension, just voided check PVR rec RX for daily lokelma in outpatient , rec sodium bicarbonate 650 mg po daily US of kidney confirms this is advance CKD b/c cortex is obliterated by cyst no indication for emergent dialysis, return him to outpatient nephrology Plan discussed with: Patient JANELNicoleKIERA MD May 23, 2025 09:50
[2025-05-23] MEDS: SODIUM BICARB 8.4% 50Meq/50ml SYR Vial IV ONE (09:59)
[2025-05-23] MEDS: ALLOPURINOL 100 MG TAB PO SCH (10:00)
[2025-05-23] MEDS: EPOETIN ALFA-EPBX 10,000 UNIT/1ML VIAL SC ONE (10:00)
[2025-05-23 10:21] LABS: Iron 103.0 ug/dL (65-175)
[2025-05-23 10:27] LABS: Total Iron Binding Capacity 216.0 ug/dL (250-425)
--- NOTE | 2025-05-23 11:58 | DVHDS2 ---
Discharge Summary Date of Admission May 22, 2025 at 19:49 Date of Discharge: May 23, 2025 Labs/Diagnostic Data: Laboratory Results Test 05/23/25 04:44 05/22/25 22:29 05/22/25 15:13 05/22/25 12:54 White Blood Count 4.2 10^3/uL (4.4-10.8) Red Blood Count 2.41 10^6/uL (4.5-5.90) Hemoglobin 7.5 g/dL (13.5-17.5) Hematocrit 21.6 % (41.0-53.0) Mean Corpuscular Volume 89.6 fL (80.0-100.0) Mean Corpuscular Hemoglobin 31.0 pg (28.0-32.0) Mean Corpuscular Hemoglobin Concent 34.7 g/dL (32.0-36.0) Red Cell Distribution Width 19.3 % (11.8-14.3) Platelet Count 113 10^3/uL (140-450) Mean Platelet Volume 7.2 fL (6.9-10.8) Neutrophils (%) (Auto) % (37.0-80.0) Lymphocytes (%) (Auto) % (10.0-50.0) Monocytes (%) (Auto) % (0.0-12.0) Basophils (%) (Auto) % (0.0-2.0) Neutrophils # (Auto) 10 ^3/uL (1.6-8.6) Lymphocytes # (Auto) 10 ^3/uL (0.4-5.4) Monocytes # (Auto) 10 ^3/uL (0-1.3) Differential Total Cells Counted 100.0 (100) Neutrophils % (Manual) 27 (37.0-80.0) Band Neutrophils % (Manual) 2 Lymphocytes % (Manual) 58 (10.0-50.0) Monocytes % (Manual) 5 (0-12) Eosinophils % (Manual) 8 (0-7) Basophils % (Manual) 0 (0.0-2.0) Metamyelocytes % (manual) 0 Myelocytes % (Manual) 0 Promyelocytes % (Manual) 0 Blast Cells % (Manual) 0 Reactive Lymphocytes 0 Platelet Estimate Decreased [place] Cells Few Sodium Level 142 mmol/L (136-145) Potassium Level 4.7 mmol/L (3.5-5.1) Chloride Level 112 mmol/L (98-107) Carbon Dioxide Level 19 mmol/L (20-31) Anion Gap 11 (5-15) Blood Urea Nitrogen 85 mg/dL (9-23) Creatinine 3.11 mg/dL (0.700-1.30) Glomerular Filtration Rate Calc 19 mL/min (>90) BUN/Creatinine Ratio 27.3 (10.0-20.0) Serum Glucose 105 mg/dL (74-106) Calcium Level 8.9 mg/dL (8.7-10.4) Phosphorus Level 4.6 mg/dL (2.4-5.1) Iron Level 103 ug/dL (65-175) Total Iron Binding Capacity 216 ug/dL (250-425) Percent Iron Saturation 47.7 % (20-55) Ferritin 490.6 ng/mL (22-322) Prothrombin Time 15.1 sec (9.3-11.8) Prothrombin Time INR 1.48 (0.9-1.15) Activated Partial Thromboplast Time 25.3 SEC (24.5-34.5) POC Glucose 128 mg/dl (70-106) Anisocytosis (manual) Slight Troponin I High Sensitivity 6 ng/L (</=54) Other Laboratory Tests 05/23/25 04:44 Brief Hx & Hospital Course: see dictated note Condition at Discharge: Fair Final Diagnosis/Problems List renal failure Discharge Disposition: Acute Care Facility Discharge Instruct/Medications Diet: Renal Activity: No Restrictions, As Tolerated Follow Up/Referral: fu with nephrology Medications: per dec Discharge Statement: "Patient was advised to return to the ER or call 911 if any headaches, dizziness, shortness of breath, chest pain, abdominal pain, bleeding, fevers, or worsening of medical condition. Patient was counseled about treatment plan, medications, possible side effects, patientverbalized understanding. All questions were answered to the best of my ability. This discharge took greater then 30 minutes in planning, reviewing documentation, counseling the patient, and discussing with other team members." ASSESSMENT ASSESSMENT Assessment renal failure Date of Service: May 23, 2025 Billing Provider: RUSSELL TOPETE MD Common Visit Codes: [id number] DISCH DAY >30min Secondary Visit Codes: [id number] CARE PLAN 30 MINUTES RUSSELL TOPETE MD May 23, 2025 11:58
[2025-05-23] MEDS ORDERED: hydrALAZINE HCL 20 MG/ML VL IV PRN (12:00)
--- NOTE | 2025-05-23 12:48 | DVHDS ---
DATE OF DISCHARGE: 05/23/2025 TRANSFER SUMMARY DATE OF TRANSFER: 05/23/2025 HISTORY OF PRESENT ILLNESS: The patient is an 79-year-old gentleman who was admitted with history of generalized weakness and mild shortness of breath. The patient has also had recent transfusions. He has a history of chronic kidney disease, diabetes, liver disease, hypertension, and anemia. HOSPITAL COURSE: The patient had a renal ultrasound that showed polycystic right kidney. The patient's creatinine was elevated at 3.26 with a BUN of 82. Potassium was 5.6 at admission. Hemoglobin has been 8.3 with a platelet count of 118. The patient's INR was 1.48. He will now be transferred to [place] for further management. FINAL DIAGNOSES: * End-stage renal disease with solitary polycystic kidney. * Anemia. * Hyperkalemia. * BPH. * Hypertension. * Liver disease. * Thrombocytopenia with anemia. * History of diabetes. ADVANCED CARE PLANNING: The patient is a full code. Time spent was 18 minutes. Time spent in discharge planning and review of plan with the patient and nursing was 39 minutes. MD CHOLO Cardenas/ALEYDA TID: [id number] RECEIPT: [id number]
--- NOTE | 2025-05-23 12:58 | DVH ---
INDICATION: renal failure TECHNIQUE: Frontal view of the chest. COMPARISON: None FINDINGS: . The heart and mediastinal contours are grossly unremarkable. There is no evidence of pleural disea se. The lungs are clear. The bony structures of the chest are intact without fracture. IMPRESSION: 1. No evidence of acute disease.
[2025-05-23 13:00] VITALS: BP 120/91; PULSE 69; RESP 17; TEMP 97.8; O2SAT 96
[2025-05-23 13:26] VITALS: BP 120/91; PULSE 69; RESP 17; TEMP 97.8; O2SAT 96
[2025-05-23] MEDS ORDERED: AMLO1TAB22 PO (13:56)
[2025-05-23] MEDS ORDERED: ATOR20TA50 PO (13:56)
[2025-05-23] MEDS ORDERED: LID35TP TOP (13:56)
[2025-05-23] MEDS ORDERED: TAMS0.4C39 PO (13:56)
[2025-05-23] MEDS ORDERED: FOLI-119 PO (13:56)
[2025-05-23] MEDS ORDERED: ALLO100T PO (13:56)
[2025-05-23 17:00] VITALS: BP 142/57; PULSE 70; RESP 18; TEMP 97.5; O2SAT 97
[2025-05-23] MEDS: TAMSULOSIN HYDROCHLORIDE 0.4 MG CAP PO SCH (17:28)
[2025-05-23 20:00] VITALS: PULSE 75
[2025-05-23 21:00] VITALS: BP 146/76; PULSE 75; RESP 16; TEMP 97.7; O2SAT 97
== END 2025-05-24 00:24 | disposition short-term general hospital (02) | DRG 640 ==
LOC: ER 11:29 → OVERFLOW 19:49 → TELE-WESTW 05-23 12:09
PROVIDERS: ADMIT Internal Medicine; ATTEND Internal Medicine
DX: E87.5 Hyperkalemia (principal); N18.6 End stage renal disease; I12.0 Hypertensive chronic kidney disease with stage 5 chronic kidney disease or end stage renal disease; N17.9 Acute kidney failure, unspecified; E87.20 Acidosis, unspecified; N40.0 Benign prostatic hyperplasia without lower urinary tract symptoms; E11.22 Type 2 diabetes mellitus with diabetic chronic kidney disease; E78.5 Hyperlipidemia, unspecified; D63.1 Anemia in chronic kidney disease; D69.6 Thrombocytopenia, unspecified; K74.60 Unspecified cirrhosis of liver; Z79.899 Other long term (current) drug therapy
CPT/HCPCS: 36415; 71045; 76775; 80048; 82728; 82962; 83540; 83550; 84100; 84132; 84484; 85007; 85027; 85610; 85730; 86850; 86900; 86901; 96365; 96375; 99291; 99292; G0378; J1815

== ENCOUNTER 2025-08-28 05:00 | Emergency (ER) | payer OTHER ==
[~2025-08-28] VITALS: Ht 182.9 cm; Wt 90.7 kg
[~2025-08-28 05:00] MED LIST: ALLO100T PO; AMLO1TAB22 PO; ATOR20TA50 PO; FOLI-119 PO; LID35TP TOP; TAMS0.4C39 PO
--- NOTE | 2025-08-28 07:33 | DVH ---
XY CHEST XRAY 1 VIEW, HISTORY: sob COMPARISON: XY CHEST PORTABLE on DOS: 05/23/25 XY CHEST PORTABLE on DOS: 05/23/25 TECHNICAL DATA: 1 view of the chest was obtained. FINDINGS: Lines and tubes: None Cardiomediastinal silhouette: normal Pulmonary vasculature: normal Lung expansion: normal Lung airspace: Mild bibasilar airspace opacity could be atelectasis. Lung interstitium: normal Pleura: normal Pneumothorax: no Bones: Unremarkable Other: no IMPRESSION: Mild bibasilar airspace opacity could be atelectasis. Limited exam without visualization of part of lung bases.
[2025-08-28 07:37] LABS: Hematocrit 34.8 % (41.0-53.0); Hemoglobin 11.7 g/dL (13.5-17.5); Mean Corpuscular Hemoglobin 33.1 pg (28.0-32.0); Mean Corpuscular Volume 98.0 fL (80.0-100.0)
[2025-08-28 07:58] LABS: Albumin 3.8 g/dL (3.2-4.8); Alkaline Phosphatase 94 U/L (46-116); Anion Gap 11 (5-15); BUN/Creatinine Ratio 11.7 (10.0-20.0); Bilirubin, Total 0.6 mg/dL (0.2-1.0); Calcium 9.2 mg/dL (8.7-10.4); Carbon Dioxide 21 mmol/L (20-31); Potassium 4.6 mmol/L (3.5-5.1); Sodium 142 mmol/L (136-145)
[2025-08-28 07:59] LABS: Alanine Aminotransferase 60 U/L (7-40); Blood Urea Nitrogen 35 mg/dL (9-23); Chloride 110 mmol/L (98-107); Glucose 131 mg/dL (74-106); Total Protein 5.6 g/dL (5.7-8.2)
[2025-08-28 08:50] VITALS: PULSE 93; RESP 21; O2SAT 94
[2025-08-28] MEDS ORDERED: ACETAMINOPHEN 500 MG TAB or CAP PO ONE (09:22)
[2025-08-28] MEDS: ACETAMINOPHEN 325 MG TAB PO ONE (09:23)
[2025-08-28] MEDS: SODIUM CHLORIDE 0.9% 1,000 ML IV ONE (09:23)
[2025-08-28 09:26] LABS: Urine Protein, UAD 2+ (Negative)
[2025-08-28 09:32] LABS: Total Cells Counted 100.0 (100)
--- NOTE | 2025-08-28 10:00 | ED.PDOC ---
History of Present Illness HPI Comments A 1-year-old male brought in by daughter, daughter states patient has been having generalized weakness slept for the last 3-4 days. 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 Patient recently finished chemotherapy two weeks ago. She states that patient has had two falls, one yesterday where he fell getting out of bed go in the bathroom and an additional when this morning. She was concerned because this morning when they tried to get him up he was too weak to get himself up. Patient states he has been feeling chills. No fever. No cough. Daughter states the patient does have a history of pulmonary effusions which was seen on scans done two weeks ago. is concerned because she can not care for the patient to help him up and he was doing fine ambulating on his own over the last three days ago and now has become much worse. Chief Complaint: General Weakness Time Seen by MD: 06:13 Reviewed Notes: Nurses Notes Allergies: Coded Allergies: NSAIDs (Verified Allergy, Unknown, 05/12/25) Home Meds Reported Medications Folic Acid (Folic Acid) 1 Mg Tab, 1 MG PO DAILY for 30 Days, MG 05/23/25 Allopurinol (Allopurinol) 100 Mg Tab, 1 TAB PO DAILY 05/23/25 Atorvastatin Calcium (ATORVASTATIN CALCIUM) 20 Mg Tab, 1 TAB PO DAILY 05/23/25 Amlodipine Besylate (Amlodipine Besylate) 5 Mg Tab, 1 TAB PO DAILY 05/23/25 Lidocaine Hcl (Lidocaine) 5 % Oin, TOP 05/23/25 Tamsulosin Hcl (Tamsulosin Hcl) 0.4 Mg Cap, CAP PO 05/23/25 Information Source: Patient, Relative (Child) Mode of Arrival: EMS Past Medical History PAST MEDICAL HISTORY: Anemia, ESRD, High Lipids, HTN, Liver Surgical History: Denies all surgeries Family History Family History: Unknown Social History Smoker: Non-Smoker Alcohol: Denies ETOH Use Drugs: Denies Drug Use Lives In: Home Constitutional: reports: chills, malaise, weakness; denies: diaphoresis, fatigue, fever, sweats, others EENTM: denies: blurred vision, double vision, ear bleeding, ear discharge, ear drainage, ear pain, ear ringing, eye pain, eye redness, hearing loss, mouth pain, mouth swelling, nasal discharge, nose bleeding, nose congestion, nose pain, photophobia, tearing, throat pain, throat swelling, voice changes, others Respiratory: denies: cough, hemoptysis, orthopnea, SOB at rest, shortness of breath, SOB with excertion, stridor, wheezing, others Cardiovascular: denies: chest pain, dizzy spells, diaphoresis, Dyspnea on exertion, edema, irregular heart beat, left arm pain, lightheadedness, palpitations, PND, syncope, others Gastrointestinal: denies: abdomen distended, abdominal pain, blood streaked bowels, constipated, diarrhea, dysphagia, difficulty swallowing, hematemesis, melena, nausea, poor appetite, poor fluid intake, rectal bleeding, rectal pain, vomiting, others Genitourinary: denies: burning, dysuria, flank pain, frequency, hematuria, in continence, penile discharge, penile sore, pain, testicle pain, testicle swelling, urgency, others Neurological: denies: dizziness, fainting, headache, left sided numbness, left sided weakness, numbness, paresthesia, pre-existing deficit, right sided numbness, right sided weakness, seizure, speech problems, tingling, tremors, weakness, others Musculoskeletal: denies: back pain, gout, joint pain, joint swelling, muscle pain, muscle stiffness, neck pain, others Integumetry: denies: bruises, change in color, change in hair/nails, dryness, laceration, lesions, lumps, rash, wounds, others Allergic/Immunocompromised: denies: Difficulty Healing, Frequent Infections, Hives, Itching, others Hematologic/Lymphatic: denies: anemia, blood clots, easy bleeding, easy bruising, swollen glands, others Physical Exam General Appearance: Moderate Distress, Thin HEENT: Normal ENT Inspection, Pharynx Normal, TMs Normal Neck: Full Range of Motion, Non-Tender, Normal, Normal Inspection Respiratory: Chest Non-Tender, Lungs Clear, No Accessory Muscle Use, No Respiratory Distress, Normal Breath Sounds Cardiovascular: No Edema, No JVD, No Murmur, No Gallop, Normal Peripheral Pulses, Regular Rate/Rhythm Breast Exam: Deferred Gastrointestinal: No Organomegaly, Non Tender, No Pulsatile Mass, Normal Bowel Sounds, Soft Genitalia: Deferred Pelvic: Deferred Rectal: Deferred Extremities: No calf tenderness, Normal capillary refill, Non-tender, No pedal edema, Swelling (Lower leg swelling) Musculoskeletal : Apperance: Normal Neurologic: Alert, [place] miner II-XII nml as Tested, No Motor Deficits, Normal Affect, Normal Mood, No Sensory Deficits Cerebellar Function: Normal Reflexes: Normal Skin: Dry, Normal Color, Warm Lymphatic: No Adenopathy Was a procedure done? Was a procedure done?: No Differential Dx Considerations may include: Pneumonia, urinary tract infection, urosepsis, lymphoma, X-Ray, Labs, Meds, VS Vital Signs Date Time Temp Pulse Resp B/P (MAP) Pulse Ox O2 Delivery O2 Flow Rate FiO2 08/28/25 09:16 91 20 136/63 (87) 94 08/28/25 09:00 92 15 122/57 (78) 93 08/28/25 08:50 98.8 93 21 132/57 (82) 94 98.8 08/28/25 08:50 93 21 94 Room Air* 0 21 08/28/25 05:19 97.2 102 20 138/81 94 97.2 Lab Test 08/28/25 09:10 08/28/25 07:06 08/28/25 00:41 Range/Units Urine Color Light-yellow Yellow Urine Clarity Clear Clear Urine pH 5.5 5.0-9.0 Urine Specific [place] 1.019 1.001-1.035 Urine Protein 2+ H Negative Urine Ketones Negative Negative Urine Blood Trace H Negative /uL Urine Nitrite Negative Negative Urine Bilirubin Negative Negative Urine Urobilinogen Normal Negative mg/dL Urine Leukocyte Esterase Negative Negative /uL Urine RBC <1 0 - 3 /hpf Urine Microscopic WBC 2 0-3 /HPF Urine Squamous Epithelial Cells None seen <5 /hpf Urine Bacteria None seen None Seen /hpf Urine Glucose Normal Normal mg/dL White Blood Count 2.3 L 4.4-10.8 10^3/uL Red Blood Count 3.55 L 4.5-5.90 10^6/uL Hemoglobin 11.7 L 13.5-17.5 g/dL Hematocrit 34.8 L 41.0-53.0 % Mean Corpuscular Volume 98.0 80.0-100.0 fL Mean Corpuscular Hemoglobin 33.1 H 28.0-32.0 pg Mean Corpuscular Hemoglobin Concent 33.7 32.0-36.0 g/dL Red Cell Distribution Width 12.9 11.8-14.3 % Platelet Count 66 L 140-450 10^3/uL Mean Platelet Volume 7.9 6.9-10.8 fL Neutrophils (%) (Auto) 37.0-80.0 % Lymphocytes (%) (Auto) 10.0-50.0 % Monocytes (%) (Auto) 0.0-12.0 % Basophils (%) (Auto) 0.0-2.0 % Neutrophils # (Auto) 1.6-8.6 10 ^3/uL Lymphocytes # (Auto) 0.4-5.4 10 ^3/uL Monocytes # (Auto) 0-1.3 10 ^3/uL Differential Total Cells Counted 100.0 100 Neutrophils % (Manual) 64 37.0-80.0 Band Neutrophils % (Manual) 9 Lymphocytes % (Manual) 10 10.0-50.0 Monocytes % (Manual) 16 H 0-12 Eosinophils % (Manual) 1 0-7 Basophils % (Manual) 0 0.0-2.0 Metamyelocytes % (manual) 0 Myelocytes % (Manual) 0 Promyelocytes % (Manual) 0 Blast Cells % (Manual) 0 Reactive Lymphocytes 0 Platelet Estimate Decreased Sodium Level 142 136-145 mmol/L Potassium Level 4.6 3.5-5.1 mmol/L Chloride Level 110 H 98-107 mmol/L Carbon Dioxide Level 21 20-31 mmol/L Anion Gap 11 5-15 Blood Urea Nitrogen 35 H 9-23 mg/dL Creatinine 3.00 H 0.700-1.30 mg/dL Glomerular Filtration Rate Calc 20 >90 mL/min BUN/Creatinine Ratio 11.7 10.0-20.0 Serum Glucose 131 H 74-106 mg/dL Lactic Acid Level 1.0 0.4-2.0 mmol/L Calcium Level 9.2 8.7-10.4 mg/dL Total Bilirubin 0.6 0.2-1.0 mg/dL Aspartate Amino Transferase (AST) 46 H 13-40 U/L Alanine Aminotransferase (ALT) 60 H 7-40 U/L Alkaline Phosphatase 94 46-116 U/L Troponin I High Sensitivity 15 </=54 ng/L B-Type Natriuretic Peptide 366.51 0-100 pg/mL Total Protein 5.6 L 5.7-8.2 g/dL Albumin 3.8 3.2-4.8 g/dL Influenza Type A Antigen Pending Influenza Type B Antigen Pending SARS-CoV-2 Antigen (Rapid) Pending Current Medications Medications (Trade) Dose Ordered Sig/Rebekah Route Start Time Stop Time Status Last Admin Sodium Chloride 1,000 ml @ 1,000 mls/hr Q1H ONCE IV 08/28/25 09:15 08/28/25 10:14 08/28/25 09:23 Acetaminophen (Tylenol Tablet) 1,000 mg ONCE ONCE PO 08/28/25 09:15 08/28/25 09:16 DC 08/28/25 09:23 X-Ray, Labs, Meds, VS Comment Spoke with naresh hoffman, at [facility]. Recommend transfer to [facility] for further evaluation. Patient clinically stable. [place] will work on [facility] er. Authorization number [id number] Time of 1ST Reevaluation: 10:05 Reevaluation 1ST: Unchanged Patient Education/Counseling: Diagnosis, Treatment, Need For Follow Up Family Education/Counseling: Diagnosis, Treatment SEPSIS Sepsis Screen Date sepsis recognized/suspect: Aug 28, 2025 Time Sepsis recognized/suspect: 0850 Recent Procedure: No On Antibiotic Therapy: Yes (AMOXICILLIN FOR DENTAL PROCEDURE) Respiratory Rate >20: Yes Heart Rate >90: No Temp<36 C (96.8 F) or >38.3 C: No SBP <90 or MAP <65 mmHG: No New Acute Mental Status Change: No Is the patient on CPAP, BIPAP,: No Physician Orders Chest Xray 1 View (08/28/25 06:43) Rapid Influenza A&B (08/28/25 06:43) Covid19 Antigen [place] (08/28/25 ) Sodium Chloride 0.9% (08/28/25 09:15) Vital Signs Date Time Temp Pulse Resp B/P (MAP) Pulse Ox O2 Delivery O2 Flow Rate FiO2 08/28/25 09:16 91 20 136/63 (87) 94 08/28/25 09:00 92 15 122/57 (78) 93 08/28/25 08:50 98.8 93 21 132/57 (82) 94 98.8 08/28/25 08:50 93 21 94 Room Air* 0 21 08/28/25 05:19 97.2 102 20 138/81 94 97.2 Laboratory Tests Test 08/28/25 07:06 Lactic Acid Level 1.0 mmol/L (0.4-2.0) White Blood Count 2.3 10^3/uL (4.4-10.8) L Medications Medications Dose Ordered Sig/Rebekah Route Start Time Stop Time Status Last Admin Dose Admin Acetaminophen 1,000 mg ONCE ONCE PO 08/28/25 09:15 08/28/25 09:16 DC 08/28/25 09:23 Sodium Chloride 1,000 ml @ 1,000 mls/hr Q1H ONCE IV 08/28/25 09:15 08/28/25 10:14 08/28/25 09:23 Departure 1 Departure Time of Disposition: 10:04 Impression: Primary Impression: Generalized weakness Additional Impression: Leukemia Qualified Codes: C95.10 - Chronic leukemia of unspecified cell type not having achieved remission Disposition: 02 SHORT TERM HOSPITAL Condition: Fair Discharged With: Self Critical Care Note Critical Care Time?: No Stability Stability form required: No Heart Score Heart Score: Heart Score Response (Comments) Value History N/A 0 EKG N/A 0 Age N/A 0 Risk Factors N/A 0 Troponin N/A 0 Total 0 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
[2025-08-28 10:02] LABS: COVID19 ANTIGEN SOFIA FIA NEGATIVE (NEGATIVE)
[2025-08-28 13:58] VITALS: BP 125/63; PULSE 96; RESP 20; TEMP 98.7; O2SAT 96
== END 2025-08-28 14:54 | disposition short-term general hospital (02) ==
LOC: ER 05:00 → EDBD 05:00 → ER 14:54
DX: C95.90 Leukemia, unspecified not having achieved remission (principal); R53.1 Weakness; I12.0 Hypertensive chronic kidney disease with stage 5 chronic kidney disease or end stage renal disease; N18.6 End stage renal disease; Z79.899 Other long term (current) drug therapy; Z88.6 Allergy status to analgesic agent; Z20.822 Contact with and (suspected) exposure to COVID-19
CPT/HCPCS: 36415; 71045; 80053; 81001; 83605; 83880; 84484; 85007; 85027; 87426; 87804; 96360; 99285; J7030